=== PATIENT | male | born 1965 | race Caucasian/White ===

== ENCOUNTER → 2018-02-07 | Outpatient (CLI) | payer OTHER | LOC: HYPER 06:49 | DX: L89.153 Pressure ulcer of sacral region, stage 3 (principal); L89.212 Pressure ulcer of right hip, stage 2; K21.9 Gastro-esophageal reflux disease without esophagitis; E78.5 Hyperlipidemia, unspecified; B36.9 Superficial mycosis, unspecified; G82.20 Paraplegia, unspecified; Z87.891 Personal history of nicotine dependence ==

== ENCOUNTER → 2018-02-17 | Outpatient (CLI) | payer OTHER | LOC: HYPER 08:04 | DX: L89.153 Pressure ulcer of sacral region, stage 3 (principal); L89.212 Pressure ulcer of right hip, stage 2; E78.5 Hyperlipidemia, unspecified; B36.9 Superficial mycosis, unspecified; R21 Rash and other nonspecific skin eruption; K21.9 Gastro-esophageal reflux disease without esophagitis; G82.20 Paraplegia, unspecified; Z87.891 Personal history of nicotine dependence ==

== ENCOUNTER → 2018-03-24 | Outpatient (CLI) | payer OTHER | LOC: HYPER 03-17 12:29 | DX: L89.153 Pressure ulcer of sacral region, stage 3 (principal); L89.312 Pressure ulcer of right buttock, stage 2; G82.20 Paraplegia, unspecified; R21 Rash and other nonspecific skin eruption; B36.9 Superficial mycosis, unspecified; K21.9 Gastro-esophageal reflux disease without esophagitis; E78.5 Hyperlipidemia, unspecified; Z87.891 Personal history of nicotine dependence ==